=== PATIENT | female | born 1945 | race Caucasian/White ===

== ENCOUNTER 2019-02-25 10:06 | Observation (INO) | payer BC, MEDICARE ==
[~2019-02-25] VITALS: Ht 157.5 cm; Wt 98.4 kg
[~2019-02-25 10:06] MED LIST: OXYTROL1 EACH TD; Z.0.EVISTA60 MG PO; Z.0.LOSARTAN POTAS10 PO; Z.0.PANTOPRAZOLE SO4 PO; Z.0.SUCRALFATE1 GM PO
--- OUTSIDE RECORDS SUMMARY | 2019-02-25 10:10 | XMS REPORT | Clinical Summary ---
Author Author [facility] Organization [facility] Address Unknown Phone Unavailable Care Team Providers Care Hazard Mitigation Officer Name Role Phone Chencho Foy DO PCP Allergies No Known Allergies Medications End Date Status Medication Sig Dispensed Refills Start Date Active lisinopril Take 10 mg by 0 (PRINIVIL,ZESTRIL) 10 mg mouth daily. tablet Active amLODIPine (NORVASC) 10 Take 10 mg by 0 mg tablet mouth daily. Active Problems Not on file Social History Date Tobacco Use Types Packs/Day Years Used Never Smoker Smokeless Tobacco: Never Used Alcohol Use Drinks/Week oz/Week Comments No Sex Assigned at Date Recorded Not on file Industry Job Start Date Occupation Not on file Not on file Not on file Travel End Travel History Travel Start No recent travel history available. Last Filed Vital Signs Not on file Plan of Treatment Health Maintenance Due Date Last Done Comments BREAST CANCER SCREENING 1996 COLONOSCOPY SCREENING 1996 SHINGLES VACCINES (#1) 1996 65+ PNEUMOCOCCAL VACCINE 10/19/2011 (1 of 2 - PCV13) INFLUENZA VACCINE 03/16/2019 Results Not on fileafter 02/24/2018 Insurance Type Payer Benefit Subscriber ID Effective Phone Address Plan / Dates Group PPO HUMANA MEDICARE HUMANA xxxxxxxxx 2016-P MEDICARE resent PPO/PFFS/E [facility] Advance Directives Patient has advance care planning documents on file. For more information, [place] keller contact: Alfred Thao [address] [place] [address]
--- NOTE | 2019-02-25 10:57 | Diagnostic Imaging Report ---
CT BRAIN WO HISTORY: Right-sided weakness, dizziness COMPARISON: None. TECHNIQUE: Noncontrast axial scans were obtained from skull base to the vertex. Coronal and sagittal reconstructions obtained from the axial data. One or more of the following dose reduction techniques were used: Automated exposure control, adjustment of the mA and/or kV according to patient size, and/or utilization of iterative reconstruction technique. DISCUSSION: Scalp/Skull: Unremarkable. Brain sulci: Appropriate for patient's age. Ventricles: Normal in size and configuration. No hydrocephalus. Extra-axial spaces: No masses or fluid collections. Parenchyma: Mild periventricular white matter hypodensities are likely chronic microvascular ischemic changes. Otherwise, no mass, hemorrhage, or large vascular territory acute infarct. Dural sinuses: No abnormal densities. Sellar/Suprasellar region: Intact. Skull base: Intact. Incidental findings: None. IMPRESSION: No acute intracranial abnormalities. Signed by: Dr. Hayden Vincent M.D. on 02/25/2019 10:53 AM
--- NOTE | 2019-02-25 10:58 | Diagnostic Imaging Report ---
A single frontal view of the chest. HISTORY: Possible stroke, right-sided weakness, dizzy COMPARISON: None available. DISCUSSION: Portable technique, limits sensitivity of the exam. Soft tissue attenuation partially limits sensitivity of the exam. Overlying monitoring leads. Tubes/Lines: None Lungs and pleura: The lungs are well inflated. No evidence of a consolidative pneumonia or pulmonary alveolar edema. No definite pleural effusion or pneumothorax is identified. Heart and mediastinum: The cardiomediastinal silhouette appears unremarkable. Bones and soft tissues: Appear unremarkable, given this limited exam. IMPRESSION: No acute radiographic abnormality. Signed by: Dr. Oli Gaines D.O., M.M.M. on 02/25/2019 10:55 AM
[2019-02-25 11:13] LABS: BASOPHILS # (AUTO) 0.1 (0.0-0.1); BASOPHILS % 0.6 % (0.0-1.0); EOSINOPHILS # (AUTO) 0.2 (0.0-0.4); EOSINOPHILS % 2.8 % (0.0-6.0); HEMATOCRIT 43.9 % (34.2-44.1); HEMOGLOBIN 14.6 g/dL (12.0-16.0); LYMPHOCYTES # (AUTO) 3.2 (1.0-3.2); LYMPHOCYTES % 40.3 % (18.0-39.1); MEAN CORPUSCULAR HEMOGLOBIN 30.4 pg (28-32); MEAN CORPUSCULAR HGB CONC 33.3 g/dL (31-35); MEAN CORPUSCULAR VOLUME 91.5 fL (81-99); MONOCYTES # (AUTO) 0.7 (0.2-0.8); MONOCYTES % 8.1 % (4.4-11.3); NEUTROPHILS # (AUTO) 3.8 (2.1-6.9); NEUTROPHILS % 47.7 % (38.7-80.0); PLATELET COUNT 284 x10e3/uL (140-360); RED CELL DISTRIBUTION WIDTH 12.4 % (11.7-14.4)
[2019-02-25 11:23] LABS: INR 0.83; PROTHROMBIN TIME 11.9 seconds (11.9-14.5)
[2019-02-25 11:33] LABS: ALANINE AMINOTRANSFERASE 61 IU/L (0-55); ALBUMIN 3.8 g/dL (3.5-5.0); ALBUMIN/GLOBULIN RATIO 1.2 (0.8-2.0); ALKALINE PHOSPHATASE 101 IU/L (40-150); BLOOD UREA NITROGEN 13 mg/dL (7-26); BUN/CREATININE RATIO 16 (6-25); CALCIUM 9.5 mg/dL (8.4-10.2); CARBON DIOXIDE 22 mmol/L (22-29); CHLORIDE 105 mmol/L (98-107); CREATINE KINASE 74 IU/L (29-168); CREATININE, SERUM 0.83 mg/dL (0.57-1.11); EST GLOMERULAR FILTRATION RATE > 60 ML/MIN (60-); GLUCOSE 182 mg/dL (74-118); SODIUM 138 mmol/L (136-145)
[2019-02-25 11:52] LABS: BILIRUBIN,URINE NEGATIVE (NEGATIVE); CLARITY,URINE CLOUDY (CLEAR); COLOR,URINE YELLOW (YELLOW); KETONES,URINE NEGATIVE (NEGATIVE); LEUKOCYTE ESTERASE ,URINE TRACE (NEGATIVE); NITRITE,URINE NEGATIVE (NEGATIVE); PROTEIN,URINE DIPSTICK 1+ (NEGATIVE); URINE UROBILINOGEN 0.2 mg/dL (0.2 - 1)
[2019-02-25] MEDS ORDERED: AMLODIPINE BESY10 MG PO (12:11)
[2019-02-25 12:19] LABS: BACTERIA,URINE FEW /HPF; EPITHELIAL CELLS,URINE FEW /LPF; RBC,URINE >50 /HPF (0-5)
[2019-02-25] MEDS ORDERED: ASPIRIN 81 MG CHEW TAB PO NR (13:30)
--- NOTE | 2019-02-25 13:42 | NUR ---
DR. DANIELLE AT BEDSIDE UPDATING PATIENT ON HER RESULTS AND THAT SHE WILL BE ADMITTED
[2019-02-25] MEDS ORDERED: ONDANSETRON HCL INJ 2MG/ML 2ML 2 MG/ML VIAL IV PRN (13:45)
--- OUTSIDE RECORDS SUMMARY | 2019-02-25 14:13 | XMS REPORT ---
Author [facility] Address Unknown Phone Unavailable Care Team Providers Care Rehabilitation Aide Name Role Phone Shelby DANIELLE Unavailable Unavailable Problems This patient has no known problems. Allergies, Adverse Reactions, Alerts This patient has no known allergies or adverse reactions. Medications This patient has no known medications. Results Test Description Test Time Test Comments Text Results Atomic Results Result Comments CHEST SINGLE (PORTABLE) 2019-02-25 10:54:00 [place] [address] Patient Name: ELVI COLLIER MR #: [id number] : 1945 Age/Sex: 73/F Req #: [id number] Adm Physician: Ordered by: AMARA CARTER NP Report #: [id number] Location: ER Room/Bed: Procedure: [id number] DX/CHEST SINGLE (PORTABLE) Exam Date: 02/25/19 Exam Time: 1036 REPORT STATUS: Signed A single frontal view of the chest. HISTORY: Possible stroke, right-sided weakness, dizzy COMPARISON: None available. DISCUSSION: Portable technique, limits sensitivity of the exam. Soft tissue attenuation partially limits sensitivity of the exam. Overlying monitoring leads. Tubes/Lines: None Lungs and pleura: The lungs are well inflated. No evidence of a consolidative pneumonia or pulmonary alveolar edema. No definite pleural effusion or pneumothorax is identified. Heart and mediastinum: The cardiomediastinal silhouette appears unremarkable. Bones and soft tissues: Appear unremarkable, given this limited exam. IMPRESSION: No acute radiographic abnormality. Signed by: Dr. Oli Gaines D.O., M.M.M. on 02/25/2019 10:55 AM Dictated By: OLI GAINES DO 1055 Transcribed By: HETAL on 02/25/19 1055 COPY TO: AMARA CARTER RN X RAY CT BRAIN WO 2019-02-25 10:50:00 [place] [address] Patient Name: ELVI COLLIER MR #: [id number] : 1945 Age/Sex: 73/F Req #: [id number] Adm Physician: Ordered by: AMARA CARTER RN X RAY Report #: [id number] Location: ER Room/Bed: Procedure: [id number] CT/CT BRAIN WO Exam Date: 02/25/19 Exam Time: 1042 REPORT STATUS: Signed CT BRAIN WO HISTORY: Right-sided weakness, dizziness COMPARISON: None. TECHNIQUE: Noncontrast axial scans were obtained from skull base to the vertex. Coronal and sagittal reconstructions obtained from the axial data. One or more of the following dose reduction techniques were used: Automated exposure control, adjustment of the mA and/or kV according to patient size, and/or utilization of iterative reconstruction technique. DISCUSSION: Scalp/Skull: Unremarkable. Brain sulci: Appropriate for patient's age. Ventricles: Normal in size and configuration. No hydrocephalus. Extra-axial spaces: No masses or fluid collections. Parenchyma: Mild periventricular white matter hypodensities are likely chronic microvascular ischemic changes. Otherwise, no mass, hemorrhage, or large vascular territory acute infarct. Dural sinuses: No abnormal densities. Sellar/Suprasellar region: Intact. Skull base: Intact. Incidental findings: None. IMPRESSION: No acute intracranial abnormalities. Signed by: Dr. Hayden Vincent M.D. on 02/25/2019 10:53 AM Dictated By: HAYDEN VINCENT MD 1053 Transcribed By: HETAL on 02/25/19 1053 COPY TO: AMARA CARTER NP
--- OUTSIDE RECORDS SUMMARY | 2019-02-25 14:13 | XMS REPORT | Clinical Summary ---
Author Author [facility] Organization [facility] Address Unknown Phone Unavailable Care Team Providers Care Kiln Transfer Operator Name Role Phone Chencho Foy DO PCP [...] MEDICARE HUMANA xxxxxxxxx 2016-P MEDICARE resent PPO/PFFS/E [facility] [place] Advance Directives Patient has advance care planning documents on file. For more information, [place] keller contact: Alfred Thao [address] [place] [address]
[2019-02-25] MEDS: CEFTRIAXONE SOD 1 GM/NS 50 ML 50 ML IV SCH (14:15)
--- NOTE | 2019-02-25 15:25 | NUR ---
PATIENT RECEIVED FROM ER PER STRETCHER AT 1456. PATIENT IN STABLE CONDITION WITH NO S/S OF RESPIRATORY DISTRESS. PATIENT DENIES PAIN. NO TELE APPLIED- WILL OBTAIN TELEMETRY BOX. SKINS INTACT. FAMILY MEMBERS PRESENT IN ROOM. CALL LIGHT IS WITHIN REACH, PATIENT INSTRUCTED TO CALL FOR ASSISTANCE NEEDED.
[2019-02-25 15:45] VITALS: BP 142/65
--- NOTE | 2019-02-25 16:05 | NUR ---
TELEMETRY OBTAINED AND APPLIED- SR@71
--- NOTE | 2019-02-25 16:54 | NUR ---
PATIENT OFF THE UNIT PER WHEELCHAIR TO MRI. PATIENT IN STABLE CONDITION WITH NO S/S OF RESPIRATORY DISTRESS. TELEMETRY APPLIED.
[2019-02-25 17:13] VITALS: BP 142/65
[2019-02-25 17:26] VITALS: BP 142/65
--- NOTE | 2019-02-25 17:54 | NUR ---
PATIENT BACK ON THE UNIT- IN STABLE CONDITION WITH NO S/S OF RESPIRATORY DISTRESS. NO PAIN VOICED. FAMILY MEMBERS PRESENT IN ROOM. CALL LIGHT IS WITHIN REACH, PATIENT INSTRUCTED TO CALL FOR ASSISTANCE NEEDED.
--- NOTE | 2019-02-25 18:10 | Diagnostic Imaging Report ---
MRI BRAIN WO HISTORY: TIA COMPARISON: Head CT 03/14/2019 TECHNIQUE: Sagittal T2, axial T2, axial T1, axial T2/FLAIR, axial gradient echo (or susceptibility weighted), coronal T2/FLAIR, and axial diffusion weighted MR images of the brain were obtained without contrast. DISCUSSION: Scalp/bone marrow: Unremarkable. Brain sulci: Appropriate for patient's age. Ventricles: Normal in size and configuration. No hydrocephalus. Extra-axial spaces: No masses or fluid collections. Parenchyma: Scattered T2/FLAIR hyperintense foci throughout the supratentorial white matter are likely chronic microvascular ischemic changes. Otherwise, no mass, hemorrhage, or acute vascular insults. Vessels: Normal flow voids in major arteries and veins. Sellar/Suprasellar region: No abnormalities. Craniocervical junction: No abnormalities. Incidental findings: Mild left maxillary sinus mucosal thickening. IMPRESSION: 1. No acute intracranial abnormalities. 2. Mild supratentorial chronic microvascular ischemic change. Signed by: Dr. Hayden Vincent M.D. on 02/25/2019 6:07 PM
--- NOTE | 2019-02-25 19:19 | NUR ---
PATIENT IS IN STABLE CONDITION WITH NO S/S OF RESPIRATORY DISTRESS. NO PAIN VOICED. TELEMETRY APPLIED. FAMILY MEMBERS AT BEDSIDE.. CALL LIGHT IS WITHIN REACH, PATIENT INSTRUCTED TO CALL FOR ASSISTANCE NEEDED. BEDSIDE REPORT GIVEN TO ONCOMING NURSE.
[2019-02-25 19:58] LABS: CREATINE KINASE MB 0.9 ng/mL (0-5.0)
[2019-02-25 20:19] VITALS: BP 138/60
[2019-02-25 22:20] VITALS: BP 138/60
[2019-02-26 01:30] VITALS: BP 124/58
[2019-02-26] MEDS ORDERED: SODIUM CHLORIDE 0.9% 250ML 250 ML ONE (02:45)
[2019-02-26] MEDS: CEFTRIAXONE SOD 1 GM/NS 50 ML 50 ML IV SCH (03:12)
[2019-02-26 04:56] LABS: BASOPHILS % 0.5 % (0.0-1.0); EOSINOPHILS # (AUTO) 0.3 (0.0-0.4); EOSINOPHILS % 3.8 % (0.0-6.0); HEMATOCRIT 39.9 % (34.2-44.1); HEMOGLOBIN 13.1 g/dL (12.0-16.0); LYMPHOCYTES # (AUTO) 3.6 (1.0-3.2); MEAN CORPUSCULAR HEMOGLOBIN 30.5 pg (28-32); MEAN CORPUSCULAR HGB CONC 32.8 g/dL (31-35); MEAN CORPUSCULAR VOLUME 92.8 fL (81-99); MONOCYTES # (AUTO) 0.8 (0.2-0.8); MONOCYTES % 9.7 % (4.4-11.3); NEUTROPHILS # (AUTO) 3.6 (2.1-6.9); NEUTROPHILS % 42.6 % (38.7-80.0); PLATELET COUNT 260 x10e3/uL (140-360); RED CELL DISTRIBUTION WIDTH 12.6 % (11.7-14.4)
[2019-02-26 05:07] LABS: ALANINE AMINOTRANSFERASE 48 IU/L (0-55); ALBUMIN 3.2 g/dL (3.5-5.0); ALBUMIN/GLOBULIN RATIO 1.2 (0.8-2.0); ALKALINE PHOSPHATASE 83 IU/L (40-150); BLOOD UREA NITROGEN 13 mg/dL (7-26); BUN/CREATININE RATIO 18 (6-25); CALCIUM 8.9 mg/dL (8.4-10.2); CARBON DIOXIDE 22 mmol/L (22-29); CHLORIDE 108 mmol/L (98-107); CHOL/HDL RATIO 5.1 (3.0-3.6); CHOLESTEROL 169 MD/DL (0-199); CREATININE, SERUM 0.74 mg/dL (0.57-1.11); EST GLOMERULAR FILTRATION RATE > 60 ML/MIN (60-); GLUCOSE 129 mg/dL (74-118); HDL CHOLESTEROL 33 MG/DL (40-60); LDL CHOLESTEROL 101 MG/DL (60-130); MAGNESIUM 2.1 MG/DL (1.3-2.1); PHOSPHORUS 3.4 MG/DL (2.3-4.7); SODIUM 140 mmol/L (136-145); TRIGLYCERIDES 174 MG/DL (0-149)
[2019-02-26 05:11] VITALS: BP 128/61
[2019-02-26 05:27] LABS: THYROID STIMULATING HORMONE 1.738 uIU/mL (0.350-4.940)
[2019-02-26] MEDS ORDERED: ACETAMINOPHEN 325 MG TAB PO PRN (05:30)
[2019-02-26] MEDS ORDERED: POLYETHYLENE GLYCOL 3350 17 GM PACK PO PRN (05:30)
[2019-02-26 06:33] LABS: CREATINE KINASE MB 0.9 ng/mL (0-5.0)
--- NOTE | 2019-02-26 07:38 | NUR ---
PATIENT IS AWAKE, ALERT, AND IN STABLE CONDITION WITH NO S/S OF RESPIRATORY DISTRESS. PATIENT DENIES PAIN. TELEMETRY APPLIED. BED ALARM APPLIED. CALL LIGHT IS WITHIN REACH, PATIENT INSTRUCTED TO CALL FOR ASSISTANCE NEEDED.
[2019-02-26 07:43] VITALS: BP 139/63
[2019-02-26 08:01] VITALS: BP 139/63
[2019-02-26] MEDS ORDERED: LOSARTAN POTASSIUM 100 MG TAB PO SCH (09:00)
[2019-02-26] MEDS ORDERED: ASPIRIN 81 MG ENTERIC COATED PO SCH (09:00)
[2019-02-26] MEDS ORDERED: DOCUSATE SODIUM 100 MG CAP PO SCH (09:00)
[2019-02-26] MEDS ORDERED: AMLODIPINE BESYLATE 10 MG TAB PO SCH (09:00)
[2019-02-26] MEDS ORDERED: DEXTROSE 50% SYRINGE 50 ML IV PRN (11:30)
[2019-02-26] MEDS ORDERED: INSULIN LISPRO 100 UNIT/1 ML 3ML VIAL SQ SCH (11:30)
[2019-02-26] MEDS ORDERED: LIPITOR20 MG PO (11:34)
[2019-02-26] MEDS ORDERED: ASPIRIN EC81 MG PO (11:34)
[2019-02-26] MEDS ORDERED: GLUCOMETER SQ (11:34)
[2019-02-26] MEDS ORDERED: METFORMIN HCL500 MG PO (11:34)
[2019-02-26 11:42] VITALS: BP 132/61
--- NOTE | 2019-02-26 13:49 | Consultation ---
DATE OF CONSULTATION: CONTINUATION: LABORATORY DATA: The most recent comprehensive metabolic panel is significant for chloride of 108, glucose of 129, total protein of 5.9, and albumin of 3.2. Cardiac enzymes are negative x3. B-natriuretic peptide 29.4. TSH 1.738. Total cholesterol 169, triglycerides 174, LDL cholesterol 101, and HDL cholesterol 33. The CBC with differential and platelets is unremarkable. The coagulation profile is within normal limits. A urinalysis collected on February 25, 2019 revealed cloudy urine with 1+ protein, trace leukocyte esterase, greater than 50 red blood cells, 6 to 10 white blood cells, few urine epithelial cells, and few urine bacteria. A urine culture collected on February 25, 2019 grew [id number] CFU/mL mixed olya contamination. DIAGNOSTIC STUDIES: Electrocardiogram of 02/25/2019: Normal sinus rhythm at 72 beats per minute. Chest x-ray of 02/25/2019: No acute thoracic abnormalities. CT of the brain without contrast of 02/25/2019: On my review, there is no evidence of recent or remote large territorial ischemia, hemorrhage, mass, or mass effect. Cerebral volumes are appropriate for age. There are findings suggestive of mild chronic small vessel ischemic disease. Echocardiogram of 02/25/2019: Ejection fraction 50% to 55%. Left ventricular hypertrophy. Trace to mild tricuspid regurgitation and pulmonic insufficiency. Trace mitral regurgitation. Bilateral carotid artery ultrasound with Doppler of 02/25/2019: There is no atherosclerosis in either carotid artery system. Flow is antegrade in the bilateral vertebral arteries. MRI of the brain without contrast of 02/25/2019: On my review, there is no evidence of recent or remote large territorial ischemia, hemorrhage, mass, or mass effect. Cerebral volumes are appropriate for age. There are scattered nonspecific T2/FLAIR hyperintense foci in the supratentorial white matter, compatible with mild chronic small vessel ischemic disease. ASSESSMENT AND PLAN: Ms. Neal is a 73-year-old right-hand dominant woman with known past medical history of hypertension with newly diagnosed dyslipidemia and diabetes mellitus type 2, admitted to [facility] on February 25, 2019 with symptoms of a transient ischemic attack and urinary tract infection. At present, the patient's neurological examination is nonfocal. Her laboratory data and other diagnostic studies have been reviewed and are documented above. Ms. Neal's stroke evaluation is complete. RECOMMENDATIONS: As follows: 1. Continue treatment with aspirin 81 mg by mouth daily for stroke prophylaxis. 2. The patient's goal blood pressure prior to discharge is less than 140/90 mmHg. Ms. Neal's blood pressures are currently at goal. Continue current antihypertensive medications. Monitor vital signs per unit protocol. 3. The patient's goal total cholesterol is less than 200 with an LDL of less than 70. The patient's total cholesterol is at goal, but the LDL cholesterol is approximately 30 points above goal. Treatment with atorvastatin 20 mg by mouth at bedtime daily will be prescribed. 4. The patient's goal hemoglobin A1c is less than 7.0. Ms. Joness hemoglobin A1c is 7.8. Defer treatment of newly diagnosed diabetes mellitus type 2 to the primary service. Tight glycemic control is recommended while the patient is hospitalized. 5. Speech and physical therapy consultations will be deferred, as the patient has no neurological deficits. 6. Defer treatment of the remaining medical comorbidities to the primary and other services following the patient. 7. The patient may be discharged to home per the primary service. Thank you for this consultation. I will continue to follow the patient while she remains in the hospital. TIME SPENT: 50 minutes. Viridiana Starks MD CP/CAR /[id number]
--- NOTE | 2019-02-26 14:01 | NUR ---
PATIENT DISCHARGE HOME- PATIENT OFF THE UNIT AT 1306 PER WHEELCHAIR ACCOMPANIED BY PCT TO THE FRONT LOBBY. PATIENT IN STABLE CONDITION WITH NO S/S OF RESPIRATORY DISTRESS. NO PAIN VOICED. IV REMOVED WITH TIP INTACT AT 1216. DISCHARGE TEACHING, INSTRUCTIONS, AND MEDICATIONS GIVEN TO THE PATIENT. DIABETIC EDUCATION MATERIAL PROVIDED TO THE PATIENT. ALL PERSONAL ITEMS TAKEN WITH THE PATIENT.
[2019-02-26] MEDS ORDERED: FAMOTIDINE 20 MG TAB PO SCH (16:30)
[2019-02-26] MEDS ORDERED: ATORVASTATIN 20 MG TAB PO SCH (21:00)
--- NOTE | 2019-02-27 01:07 | Discharge Summary ---
ADMISSION DIAGNOSES: Transient ischemic attack, hypertension, newly diagnosed type 2 diabetes, obesity, hyperlipidemia. DISCHARGE DIAGNOSES: Transient ischemic attack, hypertension, newly diagnosed type 2 diabetes, obesity, hyperlipidemia. HISTORY: The patient has a history of high blood pressure. SURGICAL HISTORY: Cholecystectomy, left wrist fracture repair, hysterectomy, and x1. FAMILY HISTORY: The patient's mother had a stroke. SOCIAL HISTORY: Noncontributory. HOSPITAL COURSE: A 73-year-old female, complains of right arm weakness, numbness, right facial droop, dysphagia, and slurred speech that began around 08:30 a.m. on the day before admission. The symptoms resolved spontaneously after about 30 minutes. Nothing improved or worsened the symptoms. The patient had a chest x-ray, which was negative. CT of the brain that showed no acute intracranial abnormalities. MRI of the brain that showed no acute intracranial abnormalities. The patient's LDL is 101, triglycerides 174. The patient was started on a new prescription for Lipitor. The patient's echo showed an EF of 50% to 55% with irregular beats throughout the test. After speaking to the coffee shop attendant, the patient had occasional PACs. EKG showed normal sinus rhythm. Bilateral carotid Doppler showed no evidence of significant carotid stenosis. The patient's A1c was found to be 7.8. The patient was given a prescription for metformin 500 b.i.d. and instructions on a diabetic diet. She was also given a prescription for glucometer with supplies plus Lipitor and aspirin. The patient and family understand discharge instructions and agrees to plan. Neurology ruled out CVA. Vital signs stable, the patient afebrile. The patient will follow up with primary care in 1 to 2 weeks. Dictated by Destiny Bryant NP MD SUMANTH Brooks/MODL /[id number]
--- NOTE | 2019-02-27 03:26 | Consultation ---
DATE OF CONSULTATION: 02/26/2019 Neurology Consult Note HISTORY OF PRESENT ILLNESS: Ms. Neal is a 73-year-old [id number] woman with past medical history significant for hypertension, admitted to [facility] on February 25, 2019, with symptoms of a transient ischemic attack as well as a urinary tract infection. On the morning of admission, the patient awoke with dizziness, which is further described as a vertiginous sensation. At approximately 0830 on the morning of admission, the patient experienced the sudden onset of dysarthria, expressive aphasia, dysphagia versus right facial droop, and right hand and arm weakness and numbness. Concerned she was having a stroke, the patient proceeded to the emergency center at [facility] for further evaluation of her symptoms. By the time the patient reached the emergency center, her symptoms had resolved. Ms. Neal estimates the above-described neurological deficits persisted for approximately 30 minutes. Upon arrival in the emergency center, the patient was afebrile with a blood pressure of 170/72 mmHg and a pulse of 81 beats per minute. Documentation of the patient's neurological examination is not available for review at this time. While in the emergency center, routine laboratory data, including a urinalysis were performed. The findings of the urinalysis were compatible with a urinary tract infection. A CT of the brain without contrast was performed while the patient was in the emergency center as well. This study did not reveal evidence of recent large territorial ischemia or hemorrhage. Ms. Neal was then admitted to [facility] as an inpatient for further evaluation and treatment of her symptoms. Ms. Neal has not experienced similar symptoms previously. The patient does not take antiplatelet or anticoagulant medications on a daily basis. REVIEW OF SYSTEMS: Dysarthria, expressive aphasia, weakness and numbness of the right arm, and dizziness which is further described as a vertiginous sensation. Otherwise, a 12-point review of systems is negative. PAST MEDICAL HISTORY: Hypertension, multiple prior urinary tract infections, prior history of peptic ulcer disease. PAST SURGICAL HISTORY: Cholecystectomy, partial hysterectomy, C-sections, repair of a left wrist fracture, tonsillectomy. PAST HOSPITALIZATIONS: Surgeries/procedures as listed, childbirth x4. FAMILY MEDICAL HISTORY: The patient's paternal and maternal grandparents are . Their medical histories are unknown. Ms. Neal's father is from coronary artery disease with a myocardial infarction. Her mother is from a stroke. Ms. Neal has two brothers and three sisters. All of her siblings have hypertension. One brother has a history of prostate cancer. One sister has Alzheimer disease. Ms. Neal has four children, two sons and two daughters, all of whom are alive and healthy. SOCIAL HISTORY: Ms. Neal is . She is retired. The patient does report a remote history of tobacco use, but quit smoking cigarettes 27 years ago. The patient reports an occasional glass of wine. She does not report current or prior recreational drug use. HOME MEDICATIONS: Amlodipine 10 mg by mouth daily and losartan 100 mg by mouth daily. HOSPITAL MEDICATIONS: Tylenol, Norvasc, aspirin EC, Lipitor, ceftriaxone, Colace, Pepcid, Humalog, Cozaar, Zofran, and MiraLAX. ALLERGIES: NO KNOWN DRUG ALLERGIES. NO KNOWN FOOD ALLERGIES. NO KNOWN ALLERGIES TO LATEX. NO KNOWN ALLERGIES TO IODINE OR OTHER CONTRAST MATERIALS. PHYSICAL EXAMINATION: VITAL SIGNS: Height 62 inches, weight 217 pounds, BMI 39.7 kg/sq m. Blood pressure 139/63 mmHg, pulse 75 beats per minute, respiratory rate 18 breaths per minute, and oxygen saturation 97% on room air. GENERAL: The patient is awake and alert, does not appear distressed. Morbidly obese. HEENT: Normocephalic, atraumatic. Pupils are equal, round, and reactive to light. Moist mucous membranes. NECK: Supple. No appreciable thyromegaly. No appreciable carotid bruits. CARDIOVASCULAR: S1, S2, regular rate and rhythm. No murmurs, rubs, or gallops. RESPIRATORY: Clear to auscultation bilaterally. No wheezes, rhonchi, or rales. EXTREMITIES: The skin is warm and dry. No clubbing, cyanosis, or edema. The posterior tibial and dorsalis pedis pulses are 2+ and symmetric. SKIN: No rashes or lesions. NEUROLOGIC: Memory/Attention: The patient is awake and alert, oriented to person, place, time, and situation. Cranial Nerves: Cranial nerve 1, not tested. Cranial nerve 2, 3, 4, and 6, pupils are equal and round, reactive briskly to light (from 4 mm to 2 mm). Extraocular movements intact. No nystagmus. Right ptosis. Cranial nerve 5, sensation to light touch and pinprick is intact in the bilateral V1 through V3 distributions. Strength in the temporalis and masseter muscles is within normal limits. Cranial nerve 7, the face is symmetric as are all facial movements. Strength is within normal limits. Cranial nerve 8, hearing is intact to finger rub bilaterally. Cranial nerve 9, 10, the soft palate elevates equally and symmetrically. Cranial nerve 11, normal strength of the bilateral sternocleidomastoid and trapezius muscles. Cranial nerve 12, the tongue protrudes midline and moves symmetrically from ukzf-tg-popy. Strength: Bulk is normal. Strength is 5/5 in the bilateral deltoids, biceps, triceps, wrist flexors and extensors, finger flexors and extensors, intrinsic hand muscles, hip flexors, knee flexors and extensors, ankle dorsiflexion and plantar flexion, and intrinsic foot muscles. Tone is normal. DTRs: Deep tendon reflexes are 2+ and symmetric at the triceps, biceps, and brachioradialis. Deep tendon reflexes are 1+ and symmetric at the patellas. Deep tendon reflexes are absent and symmetric at the Achilles. Plantar responses are flexor bilaterally. Sensation: Sensation is intact to light touch and pinprick in both arms and both legs. Cerebellar: Uudpsu-ftrr-grnpnc and heel-linton movements are intact without dysmetria or other impairment. Gait: Deferred. Speech: Spontaneous speech is normal without appreciable dysarthria or aphasia. Repetition is intact. Involuntary Movements: None. Pronator Drift: None. DICTATION ENDS HERE Viridiana Starks MD CP/MODL /[id number]
== END 2019-02-26 13:18 | disposition home or self-care (01) ==
LOC: ER 10:06 → ERHOLD 14:10 → INTOOBSV 14:10 → MED/SURG3 14:59
PROVIDERS: ADMIT Internal Medicine; ATTEND Internal Medicine
DX: G45.9 Transient cerebral ischemic attack, unspecified (principal); R47.01 Aphasia; I10 Essential (primary) hypertension; Z87.11 Personal history of peptic ulcer disease; Z90.49 Acquired absence of other specified parts of digestive tract; E11.9 Type 2 diabetes mellitus without complications; E66.9 Obesity, unspecified; Z68.39 Body mass index [BMI] 39.0-39.9, adult; E78.5 Hyperlipidemia, unspecified; N39.0 Urinary tract infection, site not specified
CPT/HCPCS: 36415 ×2; 70450; 70551; 71045; 80053 ×2; 80061; 81001; 82550 ×2; 82553 ×2; 82948; 83036; 83735; 83880; 84100; 84443; 84484 ×2; 85025 ×2; 85610; 85730; 87086; 93005; 93306; 93880; 99284; G0378 ×2; J0696 ×2; J7050

== ENCOUNTER 2019-03-17 00:21 | Emergency (ER) | payer MEDICARE ==
[~2019-03-17] VITALS: Ht 157.5 cm; Wt 98.4 kg
[~2019-03-17 00:21] MED LIST changes: +AMLODIPINE BESY10 MG PO; +ASPIRIN EC81 MG PO; +GLUCOMETER SQ; +LIPITOR20 MG PO; +METFORMIN HCL500 MG PO
--- OUTSIDE RECORDS SUMMARY | 2019-03-17 00:24 | XMS REPORT | Clinical Summary ---
Author Author [facility] Organization [facility] Address Unknown Phone Unavailable Care Team Providers Care Cleaner And Dyer Name Role Phone Chencho Foy DO PCP [...] INFLUENZA VACCINE 03/16/2019 Results Not on fileafter 03/16/2018 Insurance Type Payer Benefit Subscriber ID Effective Phone Address Plan / Dates Group PPO HUMANA MEDICARE HUMANA xxxxxxxxx 2016-P MEDICARE resent PPO/PFFS/E [facility] Advance Directives Patient has advance care planning documents on file. For more information, [place] keller contact: Alfred Thao [address] [place] [address]
[2019-03-17] MEDS ORDERED: ONDANSETRON HCL INJ 2MG/ML 2ML 2 MG/ML VIAL IV STA (00:42)
[2019-03-17] MEDS ORDERED: MORPHINE SULFATE INJ 4 MG/ML INJ 1ML IV PRN (00:45)
[2019-03-17] MEDS ORDERED: ONDANSETRON HCL INJ 2MG/ML 2ML 2 MG/ML VIAL ONE (00:47)
[2019-03-17] MEDS ORDERED: MORPHINE SULFATE INJ 4 MG/ML INJ 1ML ONE (00:47)
[2019-03-17] MEDS ORDERED: SODIUM CHLORIDE 0.9% 100 ML 100 ML ONE (00:47)
[2019-03-17] MEDS ORDERED: LEVOFLOXACIN 500MG/D5W 100ML 100 ML IV ONE (01:43)
[2019-03-17] MEDS ORDERED: SODIUM CHLORIDE 0.9% 500ML 500 ML ONE (01:43)
[2019-03-17] MEDS ORDERED: LEVOFLOXACIN 500 MG TAB PO ONE (01:45)
[2019-03-17] MEDS ORDERED: SODIUM CHLORIDE 0.9% 500ML 500 ML IV ONE (01:45)
--- NOTE | 2019-03-17 02:23 | Diagnostic Imaging Report ---
EXAM: CT Abdomen and Pelvis WITHOUT contrast INDICATION: Right flank pain COMPARISON: None. TECHNIQUE: Abdomen and pelvis were scanned utilizing a multidetector helical scanner from the lung base to the pubic symphysis without administration of IV contrast. Absence of intravenous contrast decreases sensitivity for detection of focal lesions and vascular pathology. Coronal and sagittal reformations were obtained. Routine protocol was performed. IV CONTRAST: None ORAL CONTRAST: None COMPLICATIONS: None RADIATION DOSE: Total DLP: 756 mGy*cm Estimated effective dose: (DLP x 0.015 x size factor) mSv CTDIvol has been reviewed. It is below the limits set by the Radiation Protocol Committee (RPC). Dose modulation, iterative reconstruction, and/or weight based adjustment of the mA/kV was utilized to reduce the radiation dose to as low as reasonably achievable. FINDINGS: LINES and TUBES: None. LOWER THORAX: Unremarkable HEPATOBILIARY: No focal hepatic lesions. No biliary ductal dilation. GALLBLADDER: There are cholecystectomy clips. SPLEEN: No splenomegaly. PANCREAS: No focal masses or ductal dilatation. ADRENALS: No adrenal nodules KIDNEYS/URETERS: A 3 mm calculus in the right proximal ureter causes mild right hydroureteronephrosis. Mild right perinephric and proximal periureteral fat stranding. Mild bilateral renal parenchymal thinning. Nonobstructive 0.7 cm left renal interpolar calyx calculus. Punctate nonobstructive calculi in the right renal superior pole calyces. No cystic or solid mass lesions. GI TRACT: Mild focal thickening of the sigmoid colon where there are diverticuli and mild perisigmoid fat stranding. There are colonic diverticuli No abnormal distention, or evidence of bowel obstruction. Appendix is normal. PELVIC ORGANS/BLADDER: Hysterectomy. No adnexal masses.. LYMPH NODES: No lymphadenopathy. VESSELS: There is mild atherosclerotic disease in the aorta and major arterial branches. PERITONEUM / RETROPERITONEUM: No free air or fluid. BONES: There are degenerative changes in the lumbar spine. SOFT TISSUES: There is a fat containing para-umbilical hernia. IMPRESSION: 1. A 3 mm calculus in the right proximal ureter causes mild right hydroureteronephrosis. Superimposed infection is possible. 2. Mild uncomplicated sigmoid diverticulitis. 3. Additional bilateral nonobstructive renal calculi. Signed by: Corey Rader DO on 03/17/2019 2:19 AM
[2019-03-18] MEDS ORDERED: SODIUM CHLORIDE 0.9% 500ML 500 ML IV ONE (01:45)
== END 2019-03-17 03:03 | disposition home or self-care (01) ==
LOC: FSED 00:21
DX: N13.6 Pyonephrosis (principal); E11.9 Type 2 diabetes mellitus without complications; I10 Essential (primary) hypertension; Z79.84 Long term (current) use of oral hypoglycemic drugs
CPT/HCPCS: 74176; 80048; 81003; 85025; 99284; J1956; J2270; J2405; J7040

== ENCOUNTER 2019-04-06 13:13 | Emergency (ER) | payer MEDICARE ==
[~2019-04-06] VITALS: Ht 157.5 cm; Wt 98.4 kg
[2019-04-06] MEDS ORDERED: SODIUM CHLORIDE 0.9% 500ML 500 ML IV STA (13:16)
[2019-04-06] MEDS ORDERED: KETOROLAC TROMETHAMINE 30 MG/ML VIAL IV ONE (13:30)
[2019-04-06] MEDS ORDERED: FAMOTIDINE 20 MG/2 ML VIAL IV ONE ×2 (13:30→13:33)
[2019-04-06] MEDS ORDERED: ONDANSETRON HCL INJ 2MG/ML 2ML 2 MG/ML VIAL IV ONE (13:30)
[2019-04-06] MEDS ORDERED: ONDANSETRON HCL INJ 2MG/ML 2ML 2 MG/ML VIAL ONE (13:32)
[2019-04-06] MEDS ORDERED: SODIUM CHLORIDE 0.9% 500ML 500 ML ONE (13:32)
[2019-04-06] MEDS ORDERED: KETOROLAC TROMETHAMINE 30 MG/ML VIAL ONE (13:32)
--- NOTE | 2019-04-06 14:28 | Diagnostic Imaging Report ---
Exam: CT abdomen and pelvis Clinical history: Right flank pain Comparison: March 17, 2019 Technique: Helical images of the abdomen and pelvis were obtained without contrast Findings: The lung bases are clear. There is no evidence of pleural effusion. The cardiac size is within normal limits. The liver, pancreas, spleen, adrenal glands, are unremarkable. The gallbladder has been removed. The prior mentioned 3 mm right proximal ureteral stone is no longer visualized most consistent with interval passage. A 2 to 3 mm interpolar region right nephrolithiasis and 7 mm left nephrolithiasis are again noted. There is no evidence of hydronephrosis or hydroureter. The small and large bowels are normal in caliber without evidence of obstruction. The appendix is visualized and unremarkable. The bladder is unremarkable. The patient is status post hysterectomy. There is no evidence of lymphadenopathy or free fluid. The aorta and IVC are normal in caliber. Impression: 1. Interval passage of the right ureterolithiasis. 2. Bilateral subcentimeter nonobstructive nephrolithiasis. 3. Status post cholecystectomy. 4. Status post hysterectomy. Signed by: Dr. Michael Rodriguez MD on 04/06/2019 2:24 PM
[2019-04-06 14:57] VITALS: BP 137/79
[2019-04-07] MEDS ORDERED: FLOMAX0.4 MG PO (12:12)
== END 2019-04-06 14:59 | disposition home or self-care (01) ==
LOC: FSED 13:13
DX: N20.0 Calculus of kidney (principal); R31.9 Hematuria, unspecified
CPT/HCPCS: 74176; 80053; 81003; 85025; 99284; J1885; J2405; J7040

== ENCOUNTER 2019-04-07 10:00 | Emergency (ER) | payer MEDICARE ==
[~2019-04-07] VITALS: Ht 157.5 cm; Wt 98.4 kg
[2019-04-07] MEDS ORDERED: ONDANSETRON HCL INJ 2MG/ML 2ML 2 MG/ML VIAL IV STA ×2 (10:45→11:52)
[2019-04-07] MEDS ORDERED: SODIUM CHLORIDE 0.9% 500ML 500 ML IV ONE (11:00)
[2019-04-07 11:04] LABS: BASOPHILS % 0.2 % (0.0-1.0); EOSINOPHILS % 0.3 % (0.0-6.0); HEMATOCRIT 39.6 % (34.2-44.1); HEMOGLOBIN 13.2 g/dL (12.0-16.0); LYMPHOCYTES # (AUTO) 2.3 (1.0-3.2); LYMPHOCYTES % 18.5 % (18.0-39.1); MEAN CORPUSCULAR HEMOGLOBIN 30.9 pg (28-32); MEAN CORPUSCULAR HGB CONC 33.3 g/dL (31-35); MEAN CORPUSCULAR VOLUME 92.7 fL (81-99); MONOCYTES % 7.7 % (4.4-11.3); PLATELET COUNT 286 x10e3/uL (140-360); RED BLOOD COUNT 4.27 x10e6/uL (3.6-5.1); RED CELL DISTRIBUTION WIDTH 12.6 % (11.7-14.4)
--- NOTE | 2019-04-07 11:04 | Diagnostic Imaging Report ---
EXAM: CT Abdomen and Pelvis without contrast INDICATION: Renal stones COMPARISON: 04/06/2019 TECHNIQUE: Abdomen and pelvis were scanned utilizing a multidetector helical scanner from the lung base to the pubic symphysis with contrast. Coronal and sagittal reformations were obtained. Renal stone protocol was performed. RADIATION DOSE: Total DLP: 713 mGy*cm Dose modulation, iterative reconstruction, and/or weight based adjustment of the mA/kV was utilized to reduce the radiation dose to as low as reasonably achievable. FINDINGS: LOWER THORAX: The lung bases demonstrate atelectatic changes. HEPATOBILIARY: No focal hepatic lesions. No biliary ductal dilatation. The gallbladder is surgically absent. SPLEEN: No splenomegaly. PANCREAS: No focal masses or ductal dilatation. ADRENALS: No adrenal nodules. KIDNEYS/URETERS: There is a 2 to 3 mm calculus in the interpolar region of the right kidney. A 7 mm calculus is again identified in the interpolar region of the left kidney. There is no hydroureteronephrosis bilaterally. PELVIC ORGANS/BLADDER: The urinary bladder is decompressed. The patient is status post hysterectomy. PERITONEUM / RETROPERITONEUM: No free air or fluid. LYMPH NODES: No lymphadenopathy. VESSELS: Unremarkable. GI TRACT: No distention or wall thickening. The appendix is normal. There are scattered sigmoid diverticula. BONES AND SOFT TISSUES: No acute osseous antibodies. IMPRESSION: Nonobstructing bilateral renal calculi. There is a 3 mm stone in the interpolar region on the right and 7 mm stone in the intrapolar region on the left. Status post cholecystectomy and hysterectomy. Signed by: Tommy Wheeler MD on 04/07/2019 11:00 AM
[2019-04-07] MEDS ORDERED: MORPHINE SULFATE 2 MG/ML SYR 1ML IV STA (11:24)
[2019-04-07 11:25] LABS: BILIRUBIN,URINE NEGATIVE (NEGATIVE); CLARITY,URINE CLEAR (CLEAR); COLOR,URINE YELLOW (YELLOW); KETONES,URINE NEGATIVE (NEGATIVE); LEUKOCYTE ESTERASE ,URINE NEGATIVE (NEGATIVE); NITRITE,URINE NEGATIVE (NEGATIVE); PROTEIN,URINE DIPSTICK TRACE (NEGATIVE); URINE UROBILINOGEN 0.2 mg/dL (0.2 - 1)
[2019-04-07 11:26] LABS: ANION GAP 15.4 mmol/L (8-16); CALCIUM 9.6 mg/dL (8.4-10.2); CREATININE, SERUM 1.11 mg/dL (0.57-1.11); POTASSIUM 4.4 mmol/L (3.5-5.1)
[2019-04-07 11:39] LABS: BACTERIA,URINE FEW /HPF; EPITHELIAL CELLS,URINE FEW /LPF
[2019-04-07] MEDS ORDERED: MORPHINE SULFATE INJ 4 MG/ML INJ 1ML IV ONE (11:45)
[2019-04-07] MEDS ORDERED: FLOMAX0.4 MG PO (12:12)
[2019-04-07] MEDS ORDERED: KETOROLAC TROMETHAMINE 30 MG/ML VIAL IV STA (12:13)
== END 2019-04-07 13:40 | disposition home or self-care (01) ==
LOC: ER 10:00
DX: R10.11 Right upper quadrant pain (principal); R10.31 Right lower quadrant pain; N20.0 Calculus of kidney; I10 Essential (primary) hypertension; E11.9 Type 2 diabetes mellitus without complications; E78.5 Hyperlipidemia, unspecified; Z86.73 Personal history of transient ischemic attack (TIA), and cerebral infarction without residual deficits; Z79.84 Long term (current) use of oral hypoglycemic drugs; Z79.82 Long term (current) use of aspirin
CPT/HCPCS: 36415; 74176; 80048; 81001; 85025; 99284; J1885; J2270; J2405; J7040

== ENCOUNTER → 2019-05-12 | Day surgery (SDC) | payer MEDICARE ==
[~2019-05-12] MED LIST changes: +B&O 60MG R/S 60 MG SUPP PR ONE; +CEFTRIAXONE SOD 1 GM/NS 50 ML 50 ML IV ONE; +DEXAMETHASONE SOD PHOS INJ 4 MG/ML VIAL ONE; +EPHEDRINE SULFATE INJ 50 MG/10 ML SYR ONE; +FLOMAX0.4 MG PO; +IOPAMIDOL 610MG/1ML 300 MG/ML VIAL IV ONE; +LIDOCAINE HCL 2% LOCAL INJ 5 ML SDV VIAL INJ ONE; +ONDANSETRON HCL INJ 2MG/ML 2ML 2 MG/ML VIAL ONE; +PROPOFOL IV EMULSION 10 MG/ML 20 ML VIAL ONE; +SEVOFLURANE INHAL SOLN 250 ML PEN BTL ONE
--- OUTSIDE RECORDS SUMMARY | 2019-05-12 05:32 | XMS REPORT | Clinical Summary ---
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 Name Role Phone Chencho Foy DO PCP [...] Used Never Smoker Smokeless Tobacco: Never Used Drinks/Week oz/Week Comments Alcohol Use No Sex Assigned at Date Recorded Not [...] INFLUENZA VACCINE 03/16/2019 Results Not on fileafter 05/11/2018 Insurance Type Payer Benefit Subscriber ID Effective Phone Address Plan / Dates Group PPO HUMANA MEDICARE HUMANA xxxxxxxxx 2016-P MEDICARE resent PPO/PFFS/E [facility] Advance Directives For more information, please contact: [phone] Patient Senior Manager Creative Services Explanation Type Date Recorded Advance Directives, 07/30/2017 10:22 PM Living Will and Medical Power of Cryptographic Vulnerability Analyst
[2019-05-12 07:03] LABS: BASOPHILS # (AUTO) 0.1 (0.0-0.1); BASOPHILS % 0.6 % (0.0-1.0); EOSINOPHILS # (AUTO) 0.4 (0.0-0.4); EOSINOPHILS % 3.3 % (0.0-6.0); HEMATOCRIT 43.7 % (34.2-44.1); HEMOGLOBIN 14.7 g/dL (12.0-16.0); LYMPHOCYTES # (AUTO) 3.8 (1.0-3.2); LYMPHOCYTES % 34.4 % (18.0-39.1); MEAN CORPUSCULAR HEMOGLOBIN 30.7 pg (28-32); MEAN CORPUSCULAR HGB CONC 33.6 g/dL (31-35); MEAN CORPUSCULAR VOLUME 91.2 fL (81-99); MONOCYTES % 8.8 % (4.4-11.3); NEUTROPHILS # (AUTO) 5.8 (2.1-6.9); NEUTROPHILS % 52.5 % (38.7-80.0); PLATELET COUNT 298 x10e3/uL (140-360); RED BLOOD COUNT 4.79 x10e6/uL (3.6-5.1); RED CELL DISTRIBUTION WIDTH 12.9 % (11.7-14.4)
--- NOTE | 2019-05-12 07:23 | Diagnostic Imaging Report ---
EXAM: Abdomen 2 Views INDICATION: ^PRE-OP #[id number] ^[id number] ^[id number] COMPARISON: CT dated 04/07/2019 FINDINGS: Limited by body habitus. Nonobstructive bowel gas pattern. No signs of pneumoperitoneum. 6 mm calcification projecting over the left renal shadow. No acute osseous abnormality. Right upper quadrant surgical clips, likely related to cholecystectomy. IMPRESSION: 1. 6 mm left renal calculus. 2. Nonobstructive bowel gas pattern. Signed by: Dr. Serafin Dawson MD on 05/12/2019 7:20 AM
[2019-05-12 07:30] LABS: ANION GAP 10.7 mmol/L (8-16); BLOOD UREA NITROGEN 10 mg/dL (7-26); BUN/CREATININE RATIO 12 (6-25); CALCIUM 10.1 mg/dL (8.4-10.2); CARBON DIOXIDE 24 mmol/L (22-29); CHLORIDE 103 mmol/L (98-107); CREATININE, SERUM 0.82 mg/dL (0.57-1.11); EST GLOMERULAR FILTRATION RATE > 60 ML/MIN (60-); GLUCOSE 128 mg/dL (74-118); POTASSIUM 3.7 mmol/L (3.5-5.1); SODIUM 134 mmol/L (136-145)
[2019-05-12 16:00] VITALS: BP 114/70
--- NOTE | 2019-06-16 13:14 | Operative Report ---
DATE OF PROCEDURE: 05/12/2019 SURGEON: James Small MD PREOPERATIVE DIAGNOSES: 1. Left nephrolithiasis. 2. Urinary tract infections. 3. Microhematuria. 4. Mixed type urinary incontinence. POSTOPERATIVE DIAGNOSES: 1. Left nephrolithiasis. 2. Urinary tract infections. 3. Microhematuria. 4. Mixed type urinary incontinence. 5. Cystocele. 6. Rectocele. 7. Atrophic (senile) vaginitis. OPERATIONS PERFORMED: Note, these were all staged procedures as part of multistaged, multistep process in managing the patient's urolithiasis. 1. Left-sided extracorporeal shockwave lithotripsy (separate procedure performed for the nephrolithiasis). 2. Cystourethroscopy with bilateral ureteral catheterization and retrograde ureteropyelography (separate procedure performed for the urine tract infections and microscopic hematuria). 3. Interpretation of retrograde ureteropyelography. 4. Supervision of fluoroscopy, no radiologist present. 5. Pelvic examination under anesthesia. ANESTHESIA: General. COMPLICATIONS: None. CLINICAL SUMMARY: Madisyn Neal is a 73-year-old woman with the above preoperative diagnoses. She is brought for the above procedure. She is aware of the risks of bleeding, infection, injury to adjacent structures, need for additional procedures and elected to proceed. OPERATIVE PROCEDURE IN DETAIL: Informed consent was verified. Madisyn Neal was properly identified, taken to the operating room, placed on the lithotripsy table in supine position. Anesthesia was uneventfully begun. The patient's left nephrolithiasis was localized with biplanar fluoroscopy. A total of 3000 shocks were delivered with excellent fragmentation to this 8 mm upper calyceal stone. The patient was then carefully gently repositioned in dorsal lithotomy position with pressure points well padded. Her genitalia were prepared and draped in usual sterile fashion. The cystoscope sheath with obturator in place was atraumatically inserted in the patient's urethra and the bladder was drained. Panendoscopy of the bladder revealed no suspicious mucosal lesions, no tumors, no stones, and no diverticula. Normally positioned and configured ureteral orifices were identified. An 8-Niuean catheter was used to cannulate each ureter and retrograde ureteropyelograms were performed. Interpretation of retrograde ureteropyelography contrast was instilled in retrograde fashion bilaterally. On right hand side there were no tumors, no stones, no diverticula. No suspicious lesions. Unobstructed drainage was observed. On the left hand side there were filling defects in the upper pole calyx corresponding to blood clots and stone debris from the lithotripsy. There was no hydronephrosis and unobstructed drainage was observed fluoroscopically. The patient's bladder was drained, cystoscope was withdrawn. Pelvic examination under anesthesia revealed a cystocele, rectocele and atrophic (senile) vaginitis. No abnormal palpable pelvic masses could be appreciated. There were no obvious mucosal lesions. The patient was then uneventfully reversed from anesthesia and taken to the recovery room in stable condition. Explicit postop instructions were given and we will follow the patient up in the office. We will also plan to follow up with Cardiology for her atrial fibrillation that was noted perioperatively. James MD [facility]/MODL /[id number] cc: Trae Foy DO
== END | disposition home or self-care (01) ==
LOC: OR 05:26
PROVIDERS: ATTEND Urology
DX: N20.0 Calculus of kidney (principal); N20.1 Calculus of ureter; N39.0 Urinary tract infection, site not specified; N13.30 Unspecified hydronephrosis; N39.46 Mixed incontinence; R80.9 Proteinuria, unspecified; N81.10 Cystocele, unspecified; N81.6 Rectocele; N95.2 Postmenopausal atrophic vaginitis; E66.9 Obesity, unspecified; I10 Essential (primary) hypertension; Z79.82 Long term (current) use of aspirin; Z79.84 Long term (current) use of oral hypoglycemic drugs; Z68.39 Body mass index [BMI] 39.0-39.9, adult; Z86.73 Personal history of transient ischemic attack (TIA), and cerebral infarction without residual deficits; Z80.42 Family history of malignant neoplasm of prostate
CPT/HCPCS: 36415; 50590; 74018; 80048; 82948; 85025; 93005; C1758; J0696; J1100; J2001; J2405; J2704; Q9967

== ENCOUNTER → 2019-06-19 | Outpatient (CLI) | payer MEDICARE ==
[~2019-06-19] MED LIST changes: -B&O 60MG R/S 60 MG SUPP PR ONE; -CEFTRIAXONE SOD 1 GM/NS 50 ML 50 ML IV ONE; -DEXAMETHASONE SOD PHOS INJ 4 MG/ML VIAL ONE; -EPHEDRINE SULFATE INJ 50 MG/10 ML SYR ONE; -IOPAMIDOL 610MG/1ML 300 MG/ML VIAL IV ONE; -LIDOCAINE HCL 2% LOCAL INJ 5 ML SDV VIAL INJ ONE; -ONDANSETRON HCL INJ 2MG/ML 2ML 2 MG/ML VIAL ONE; -PROPOFOL IV EMULSION 10 MG/ML 20 ML VIAL ONE; -SEVOFLURANE INHAL SOLN 250 ML PEN BTL ONE
--- NOTE | 2019-06-19 11:14 | Diagnostic Imaging Report ---
Exam: KUB - 2 views Indication: Renal calculi Comparison: KUB of 05/12/2019 Findings: The previously visualized left renal calculus is not seen on today's KUB. No radiographically apparent renal calculi. Nonobstructive bowel gas pattern. No free air. Status post cholecystectomy. Mild degenerative changes of the spine and hip joints. Impression: No radiographically apparent renal calculi. Signed by: Yobany Lyons MD on 06/19/2019 11:11 AM
== END ==
LOC: RAD 09:57
PROVIDERS: ATTEND Urology
DX: N20.0 Calculus of kidney (principal)
CPT/HCPCS: 74018